=== PATIENT | male | born 1995 | race Caucasian/White ===

== ENCOUNTER 2023-11-04 02:53 | Emergency (ER) | payer SELFPAY ==
[~2023-11-04] VITALS: Ht 177.8 cm; Wt 81.6 kg
[2023-11-04 02:56] VITALS: BP 99/78; PULSE 82; RESP 20; TEMP 96.5; O2SAT 97
[2023-11-04 03:15] VITALS: O2SAT 98
[2023-11-04 03:27] VITALS: BP 117/76; PULSE 78; RESP 18; TEMP 97.7
[2023-11-04] MEDS: ALBUTEROL 0.083% 2.5 MG/3 ML NEBU INH ONE (03:36)
[2023-11-04 03:41] VITALS: O2SAT 98
[2023-11-04] MEDS ORDERED: ALBU0.0912 IH (03:54)
== END 2023-11-04 04:01 | disposition home or self-care (01) ==
LOC: MED 02:53
DX: J98.01 Acute bronchospasm (principal); Z79.899 Other long term (current) drug therapy
CPT/HCPCS: 94640; 99283; J7613